=== PATIENT | female | born 1990 | race Caucasian/White ===

== ENCOUNTER 2019-10-14 05:48 | Inpatient (IN) ==
[2019-10-14] MEDS ORDERED: Lidocaine 1% 20 ML MDV ID PRN (06:03)
[2019-10-14] MEDS ORDERED: Ondansetron 4 MG/2 ML VIAL IVP PRN (06:03)
[2019-10-14] MEDS ORDERED: Naloxone 0.4 MG/ML INJ IVP PRN (06:03)
[2019-10-14] MEDS ORDERED: Famotidine 20 MG/2 ML VIAL IVP PRN (06:03)
[2019-10-14] MEDS ORDERED: Metoclopramide 10 MG/2 ML VIAL IVP PRN (06:03)
[2019-10-14] MEDS ORDERED: *HR* Nalbuphine 10 MG/ML AMPUL IVP PRN (06:03)
[2019-10-14] MEDS ORDERED: miSOPROStoL 25 MCG TABLET VG PRN (06:06)
[2019-10-14 06:26] LABS: Basophils % 0.2 %; Eosinophils # 0.1 K/mcL (0.0-0.6); Eosinophils % 0.8 %; Hemoglobin 12.1 g/dL (11.5-15.4); Immature Granulocytes % 0.3 % (0-4); Lymphocytes # 2.3 K/mcL (0.6-4.6); Lymphocytes % 20.2 %; Mean Corpuscular HGB Conc 33.6 g/dL (31.6-35.5); Mean Corpuscular Hemoglobin 32.2 pg (28.0-33.3); Mean Corpuscular Volume 95.7 fL (83.0-100.0); Monocytes # 0.5 K/mcL (0.0-1.3); Monocytes % 4.1 %; Neutrophils # 8.6 K/mcL (1.6-8.9); Platelet Count 263 K/mcL (140-400); Red Blood Count 3.76 M/mcL (3.82-4.97); Red Cell Distribution Width 14.5 % (11.5-14.5); Segmented Neutrophils % 74.4 %; White Blood Count 11.6 K/mcL (4.3-11.1)
[2019-10-14] MEDS ORDERED: Oxytocin 20 units/ LR 1000 mL 20 UNIT/1,000 ML BAG IVC SCH ×2 (08:30→22:43)
[2019-10-14] MEDS: Ringers Solution, Lactated 1,000 ML IVC SCH ×2 (08:38→17:22)
[2019-10-14] MEDS ORDERED: Epidural Premix (fent/bupiv) 110 ML EP ONE (11:33)
[2019-10-14 11:37] LABS: Amphetamine Screen,Urine Negative ng/mL (Cutoff=1000); Barbiturate Screen,Urine Negative ng/mL (Cutoff=200); Benzodiazepines Screen,Urine Negative ng/mL (Cutoff=200); Cannabinoid Screen,Urine Negative ng/mL (Cutoff = 50); Cocaine Screen,Urine Negative ng/mL (Cutoff= 300); Opiate Screen,Urine Negative ng/mL (Cutoff=300); Phencyclidine Screen,Urine Negative ng/mL (Cutoff=25)
[2019-10-14] MEDS ORDERED: Epidural Premix (fent/bupiv) 110 ML EP SCH (11:45)
[2019-10-14] MEDS ORDERED: Measles/Mumps/Rubella Vacc 0.5 ML VIAL SQ PRN (22:43)
[2019-10-14] MEDS ORDERED: Rho Immune Globulin 1,500 UNIT SYRINGE IM PRN (22:43)
[2019-10-14] MEDS ORDERED: Famotidine 20 MG TABLET PO PRN (22:43)
[2019-10-14] MEDS: Ibuprofen 600 MG TABLET PO PRN (22:49)
[2019-10-15] MEDS: Acetaminophen 325 MG TABLET PO PRN ×2 (03:28→08:22)
[2019-10-15] MEDS: Ibuprofen 600 MG TABLET PO PRN ×2 (06:01→11:58)
[2019-10-15] MEDS ORDERED: NON-FORMULARY MEDICATION 1 EACH EACH (Prenatal Vitamin Tablet 1 TAB) PO SCH (09:00)
[2019-10-15] MEDS ORDERED: Prenatal Vit/FA 1 EACH TABLET PO SCH (09:00)
[2019-10-15 15:20] VITALS: BP 117/76
== END 2019-10-15 21:00 | disposition home or self-care (01) | DRG 560 ==
LOC: 1NENULAB 05:48 → 1NENUOBS 23:44
PROVIDERS: ADMIT Student in an Organized Health Care Education/Training Program; ATTEND Student in an Organized Health Care Education/Training Program